=== PATIENT | female | born 1970 | race Caucasian/White ===

== ENCOUNTER 2019-10-15 16:00 | Outpatient (RCR) | payer BC ==
[~2019-10-15 16:00] MED LIST: ASPIRIN E.C. 8181 MG PO; CALTRATE 600600 MG PO; CENTRUM1 TAB PO; DEXILANT60 MG PO; LEVOTHYROXINE PO; MICARDIS 40MG40 MG PO; MICARDIS40 MG PO; MICROZIDE12.5 MG PO; MYLANTA MAXIMU355 ML PO; NATURAL E400 IU PO; POLYSPORIN OINT30 GM TP; PRAVACHOL 40MG40 MG PO; PROTONIX 40MG T40 MG PO; PROTONIX40 MG PO; ROLAIDS220 M1 PO; SYNTHROID 0.0.025 MG PO; VITAMIN C500 MG PO
== END 2019-12-03 | disposition home or self-care (01) ==
LOC: WSC
DX: M48.061 Spinal stenosis, lumbar region without neurogenic claudication (principal); M51.26 Other intervertebral disc displacement, lumbar region

== ENCOUNTER 2019-12-24 10:00 | Outpatient (RCR) | payer BC ==
[2020-02-26] MEDS ORDERED: TOPAMAX 25MG25 M1 PO (10:03)
== END 2020-03-08 | disposition home or self-care (01) ==
LOC: WSPT
DX: M48.061 Spinal stenosis, lumbar region without neurogenic claudication (principal); M51.26 Other intervertebral disc displacement, lumbar region

== ENCOUNTER → 2020-01-15 | Outpatient (CLI) | payer BC ==
[~2020-01-15] VITALS: Ht 156.2 cm; Wt 111.8 kg
[2020-01-15 10:07] VITALS: BP 132/80; PULSE 80
== END ==
LOC: LIGHT 10-30 16:13
DX: E66.01 Morbid (severe) obesity due to excess calories (principal); Z68.43 Body mass index [BMI] 50.0-59.9, adult; E88.81 Metabolic syndrome and other insulin resistance; I10 Essential (primary) hypertension; E78.5 Hyperlipidemia, unspecified
CPT/HCPCS: G0463

== ENCOUNTER → 2020-02-26 | Outpatient (CLI) | payer BC ==
[~2020-02-26] VITALS: Ht 156.2 cm; Wt 112.0 kg
[~2020-02-26] MED LIST changes: +TOPAMAX 25MG25 M1 PO
[2020-02-26 10:04] VITALS: BP 146/90; PULSE 64
== END ==
LOC: LIGHT 10:05
DX: E66.01 Morbid (severe) obesity due to excess calories (principal); Z68.42 Body mass index [BMI] 45.0-49.9, adult; E78.5 Hyperlipidemia, unspecified; I10 Essential (primary) hypertension
CPT/HCPCS: G0463